=== PATIENT | male | born 1985 | race Two or more races ===

== ENCOUNTER 2017-07-15 23:35 | Emergency (ER) | payer BC ==
--- NOTE | 2017-07-16 00:31 | ER Document Report ---
HPI - HPI Patient complains to provider of: Right knee pain Onset: This afternoon Onset/Duration: Sudden Quality of pain: Achy Severity: Moderate Pain Level: 3 Context: Patient presents emergency department with complaints of right knee pain. Patient reports he was at work today when he knelt down on his right knee and started having knee pain. Patient reports varicose veins. Denies trauma. Denies fever vomiting diarrhea. Associated Symptoms: None Exacerbated by: Denies Relieved by: Denies Similar symptoms previously: Yes Recently seen / treated by doctor: No Past Medical History - General Information source: Patient - Social History Smoking Status: Current Every Day Smoker Cigarette use (# per day): Yes Frequency of alcohol use: None Drug Abuse: None Occupation: [employer] Lives with: Family Family History: None Patient has suicidal ideation: No Patient has homicidal ideation: No - Medical History Medical History: Other - Varicose veins Surgical Hx: Negative - Immunizations Hx Diphtheria, Pertussis, Tetanus Vaccination: No Vertical Provider Document - CONSTITUTIONAL Agree With Documented VS: Yes Exam Limitations: No Limitations General Appearance: WD/WN, No Apparent Distress - Nontoxic looking - INFECTION CONTROL TRAVEL OUTSIDE OF THE [place] IN LAST 30 DAYS: No - HEENT HEENT: Atraumatic, Normocephalic - NECK Neck: Supple - RESPIRATORY Respiratory: Breath Sounds Normal, No Respiratory Distress O2 Sat by Pulse Oximetry: 95 - CARDIOVASCULAR Cardiovascular: Regular Rate - MUSCULOSKELETAL/EXTREMETIES Musculoskeletal/Extremeties: MAEW, FROM, Tender - Right anterior knee with varicose veins no erythema, no swelling no warmth no pain with touch. - NEURO Level of Consciousness: Awake, Alert, Appropriate Motor/Sensory: No Motor Deficit - DERM Integumentary: Warm, Dry Adult Front & Back Diagram: 1 - varicose veins Course - Re-evaluation Re-evalutation: 07/16/17 00:36 Patient instructed on signs and symptoms of infection. No obvious infection to his right knee. Patient has multiple varicose veins to both lower legs. Patient was instructed to follow-up with the surgeon to discuss treatment. He verbalized understanding. Patient was also instructed to return to the emergency department should he have increased pain. He was instructed on the need for Doppler at that time. He verbalized understanding to all information - Vital Signs Vital signs: Temp Pulse Resp BP Pulse Ox 98 F 88 18 141/91 H 95 07/16/17 00:08 07/16/17 00:08 07/16/17 00:08 07/16/17 00:08 07/16/17 00:08 Discharge - Discharge Clinical Impression: Right anterior knee pain, varicose veins Condition: Stable Disposition: HOME, SELF-CARE Instructions: Acetaminophen, Varicose Veins ([facility]) Additional Instructions: *You have been evaluated for right knee pain, varicose veins *Rest/Ice/Elevate your knee *Follow up with a surgeon for evaluation *Take tylenol as indicated *Return to ED for worsening condition, changes, needs, redness, swelling, warmth Monitor your blood pressure. Your blood pressure was elevated today. This may be because you were anxious, in pain or because you need medication. It is important to follow up with your primary care provider for full evaluation. Forms: Elevated Blood Pressure Referrals: MODESTO DEE MD [ACTIVE STAFF] - Follow up in 3-5 days
[2017-07-16 00:39] VITALS: BP 135/90
== END 2017-07-16 00:47 | disposition home or self-care (01) ==
LOC: ER 23:35
DX: I83.811 Varicose veins of right lower extremity with pain (principal); I83.92 Asymptomatic varicose veins of left lower extremity; F17.210 Nicotine dependence, cigarettes, uncomplicated
CPT/HCPCS: 99283